=== PATIENT | female | born 1945 | race Caucasian/White ===

== ENCOUNTER 2016-12-12 11:04 | Emergency (ER) | payer BC, MEDICARE ==
[2016-12-12] MEDS ORDERED: Lidocaine 1% 20 ML MDV ONE (11:33)
--- NOTE | 2016-12-12 13:11 | RAD ---
AP VIEW CHEST WITH FOUR VIEWS OF THE LEFT RIBS INDICATIONS: Slipped and fell with left ribcage pain. FINDINGS: The lungs are clear. The cardiomediastinal silhouette is within normal limits. No definite displac ed left lateral rib fracture is evident. No pneumothorax is demonstrated. IMPRESSION: No displaced left-sided rib fracture. POS: [facility]
== END 2016-12-12 12:35 | disposition home or self-care (01) ==
LOC: NAV ERS 11:04
DX: S01.81XA Laceration without foreign body of other part of head, initial encounter (principal); S20.212A Contusion of left front wall of thorax, initial encounter; I10 Essential (primary) hypertension; Z79.899 Other long term (current) drug therapy; W01.190A Fall on same level from slipping, tripping and stumbling with subsequent striking against furniture, initial encounter; Y92.000 Kitchen of unspecified non-institutional (private) residence as the place of occurrence of the external cause
CPT/HCPCS: 12014; J2001

== ENCOUNTER 2016-12-17 14:39 | Emergency (ER) | payer BC, MEDICARE | END 2016-12-17 15:37 | disposition home or self-care (01) | LOC: NAV ERS 14:39 | DX: S01.81XD Laceration without foreign body of other part of head, subsequent encounter (principal); M19.90 Unspecified osteoarthritis, unspecified site; I10 Essential (primary) hypertension; Z79.899 Other long term (current) drug therapy ==